=== PATIENT | female | born 1955 | race Caucasian/White ===

== ENCOUNTER 2025-10-17 08:57 | Outpatient (AMB) | payer OTHER, SELFPAY ==
--- OUTSIDE RECORDS SUMMARY | 2024-04-22 06:27 | XMS_ITS ---
Author Organization [facility] Address [address] [place] [id number] Care Team Providers Care Health/Safety Job Titles Name Role Phone NO, PCP Primary Care Provider Erfain Christie Unavailable [phone] Sugey Arriaga Unavailable [phone] REASON FOR VISIT returning call (2nd attempt) Encounters Encounter Location Date Provider Diagnosis [facility] [address] [address] 04/22/2024 Sugey Arriaga Plan Of Treatment No Information Progress Notes * Paula WALKERDOB: 4 (70 yo F)Acc No.[id number]:04/22/2024 Patient: Betsy MACE Paula :1955 A ge:68 Y S ex:Female Address:[address] [place] [address], [address] * * Date:
--- OUTSIDE RECORDS SUMMARY | 2025-08-06 16:00 | XMS_ITS ---
Author Organization [facility] Address [address] [place] [address] Care Team Providers Care Corduroy Cutter Operator Name Role Phone NO, PCP Primary Care Provider [phone] Efrain Christie Unavailable [phone] Migration, Provider Unavailable Unavailable Allergies Allergen (clinical drug ingredient) Drug/Non Drug Allergy documented on EMR Reaction Allergy Type Onset Date Status Levaquin rash Drug Allergy Active Penicillin rash Drug Allergy Active REASON FOR VISIT [facility] Encounter Medications Medication SIG (Take, Route, Frequency, Duration) Notes Start Date End Date Status Amitriptyline HCl 25 MG 1 tab(s) orally once a day (at bedtime) Active SUMAtriptan Succinate 100 MG 1 tab(s) orally once prn Active tiZANidine HCl ?DOSAGE *Please review a nd pick correct strength-formulati on from [facility] options. If intended option is not shown, discontinue and re-order from Quick Search* Active NexIUM 40 MG 1 cap(s) orally once a day Active Naproxen 375 MG 1 tab(s) orally 2 times a day Active Fluticasone Propionate 50 MCG/ACT 1 spray(s) intranasally bid Active Propranolol HCl 40 MG 1 tab(s) orally 2 times a day Active clonazePAM 0.5 MG 1 tab(s) orally qd Active rOPINIRole HCl 4 MG 1 tab(s) orally bid Active Topiramate 100 MG 1 tab(s) orally 2 times a day Active Encounters Encounter Location Date Provider Diagnosis [address] [address] 08/06/2025 Provider Migration Plan Of Treatment No Information Progress Notes * Jazzmine WALKERpeterDOB: 4 (70 yo F)Acc No.[id number]:08/06/2025 Patient: Paula BANKS Provider: :1955 A ge:69 Y S ex:Female Date:08/06/2025 Address:[address] [place] [address] Pcp:PCP NO Subjective: * Chief Complaints: * 1 . [facility] Conversion Encounter. * Medical History: * Medications: T aking Amitriptyline HCl 25 MG Tablet 1 tab(s) orally once a day (at bedtime) , Taking Propranolol HCl 40 MG Tablet 1 tab(s) orally 2 times a day , Taking clonazePAM 0.5 MG Tablet 1 tab(s) orally qd , Taking Fluticasone Propionate 50 MCG/ACT Suspension 1 spray(s) intranasally bid , Taking rOPINIRole HCl 4 MG Tablet 1 tab(s) orally bid , Taking Topiramate 100 MG Tablet 1 tab(s) orally 2 times a day , Taking NexIUM 40 MG Capsule Delayed Release 1 cap(s) orally once a day , Taking Naproxen 375 MG Tablet 1 tab(s) orally 2 times a day , Taking SUMAtriptan Succinate 100 MG Tablet 1 tab(s) orally once prn , Taking tiZANidine HCl ?DOSAGE , Notes to Pharmacist: *Please review and pick correct strength-formulation from [facility] options. If intended option is not shown, discontinue and re-order from Quick Search* * Allergies: P enicillin: rash - Allergy, Levaquin: rash - Allergy. Objective: * Vitals: Assessment: Plan: * Treatment: * Images: Billing Information: * Visit Code: * Procedure Codes: * Electronic signature of Prov ider Migration on 10/17/2025 at 09:39 AM EST Sign off status: Pending * Provider: Date: 0 08/06/2025 Generated for Augusta grant/Lourdes/Suzan on: 12/17/2024 09:39 AM EST
--- NOTE | 2025-10-17 08:59 | MHC.OFFVIS ---
Vital Signs 10/17/25 09:09 Height 5 ft 5 in Weight 152 lb BMI 25.3 BP 102/62 Blood Pressure Location Lt radial Position Sitting Intake Visit Reasons: FOLLOW UP, MIGRANES/MEDICATIONS Manager Parking Required: No Allergies levofloxacin (From Levaquin) Allergy (Unknown, Verified 10/17/25 09:10) Unknown Penicillins Allergy (Unknown, Verified 10/17/25 09:10) Unknown Medication List - Last Reconciled 10/17/25 by Alecia Hernandes CNP duloxetine 30 mg PO DAILY 30 days pramipexole 1 mg PO QPM 90 days pregabalin 75 mg PO ONCE topiramate 100 mg (2 x 50 mg) PO BEDTIME 30 days HPI Comments Details: Paula is a 70-year-old female patient with a past medical history of back pain, gastric bypass, liver cancer, and cardiac valve abnormalities here today for a follow-up visit. She has been following in the clinic for history of migraine and peripheral neuropathy. She was last seen in February of [address] David at which time she was on topiramate 100 mg at bedtime and amitriptyline for prevention and was taking sumatriptan and butalbital for abortive therapy. She was taking lidocaine patches, pramipexole, and pregabalin for her lower extremity discomfort. She tells me today that she reports that her lower extremities are swelling and she recently received an order for compression stockings that are knee high. She has seen some improvement in this. She continues to have significant discomfort her lower extremities especially to the right foot described as a squeezing sensation during the day. Sometimes her pain radiates from her right hip down. She has been taking Lyrica 75 mg and pramipexole 1 mg at bedtime for her pain which is helpful at night but still has significant difficulty during the day. She has tried Lyrica twice daily in the past however it made her very somnolent during the day and she stopped it taking it only now at nighttime. She is seeing podiatry regularly for her feet though Mr. Recent appointment and has another 1 coming up in 10 weeks. Her balance can be poor though she has not had any recent falls. She uses a cane and walker depending on the distance she is going. In terms of migraine, she still has migraine-type headaches including visual auras before onset of headache approximately 3 days per week. She has however been able to minimize her pain with immediate rest and pressure points to her head. She has not been taking her butalbital or sumatriptan as she has found that her non pharmaceutical measures has been allowing her to be pain-free within an hour so after onset. Headaches however can be frontal into the retro-orbital area typically unilateral when she does get them. She also has light and sound sensitivity and some mild nausea. She has been taking topiramate 100 mg at bedtime. [facility] Medical History (Updated 10/17/25 @ 09:50 by Alecia Hernandes CNP) Peripheral neuropathy Low back pain RLS (restless legs syndrome) Migraine Review of Systems Const All systems reviewed & are unremarkable except as noted in HPI and below Physical Exam Vital Signs: Last Vital Signs BP 102/62 10/17/25 09:09 BMI result Body Mass Index 25.3 Const General: cooperative, healthy appearing, comfortable and no acute distress Nutritional Appearance: well nourished Orientation/consciousness: patient oriented x3 Limitations: no limitations HEENT Head: Yes normal to inspection and Yes normocephalic Eyes General: appearance normal, both eyes and all related structures Visual Tubbs: normal visual tubbs by confrontation Alignment and Position: alignment normal Periorbital: periorbital findings normal Eyelids: Yes eyelids normal Conjunctivae: conjunctivae normal Sclerae: sclerae normal Direct Ophthalmoscopy: normal light reflex, no papilledema and fundi normal bilaterally Neck Neck: Yes normal visual inspection and Yes full ROM General: Yes no CVA tenderness Back/Spine/Pelvis Back: no CVA tenderness Cervical Spine: normal cervical lordosis Thoracic/Lumbar Spine: thoracic and lumbar spine normal to inspection Neuro General: patient oriented x3 and tone normal Cranial nerves: Yes CN's II-XII intact bilaterally Cognition (Neuro): normal cognition Gait exam (Neuro): Normal gait present Motor exam (neuro): no tremor noted and Abnormal motor strength present (4/5 throughout ) Sensory Exam: double simultaneous stimulation for sensation normal Deep tendon reflexes (DTR's): Right triceps reflex intensity grade: 1+, Left triceps reflex intensity grade: 1+, Rt Biceps (C5, C6): 1+, Left biceps reflex intensity grade: 1+, Right brachioradialis reflex intensity grade: 1+, Left brachioradialis reflex intensity grade: 1+, Right patellar reflex intensity grade: 1+, Left patellar reflex intensity grade: 1+, Right ankle reflex intensity grade: 1+ and Left ankle reflex intensity grade: 1+ Romberg Test: Negative Pupils: Normal pupillary reactivity/response: bilateral Psych Appearance: grossly normal Mental Status: mental status grossly normal Speech and movement: Normal speech and movement present and Clear speech present Affect: normal affect Attitude: cooperative Thought process: Normal thought process present Thought content: Normal thought content present Insight: Good insight present (Psych) Judgement: Good judgement present (Psych) Assessment & Plan Assessment & Plan (1) Migraine with aura and without status migrainosus, not intractable: Code(s): G43.109 - Migraine with aura, not intractable, without status migrainosus Category: Medical (2) Lower extremity pain: Code(s): M79.606 - Pain in leg, unspecified Category: Medical Plan Paula is a 70-year-old female patient with a past medical history of back pain, gastric bypass, liver cancer, and cardiac valve abnormalities here today for a follow-up visit. She has been following in the clinic for history of migraine and peripheral neuropathy. She continues to have difficulty managing pain during the day as she has not been able to tolerate sedating medications. She is taking her Lyrica and pramipexole at nighttime which does help. During the day however she is very uncomfortable. She was taken off of amitriptyline for unclear reasons but perhaps due to her age. I will start her on duloxetine 30 mg daily for her pain and at time of next visit if she is tolerating well, I will increase the dose to 60 mg if indicated. I would also like to start to consider tapering her off of her topiramate as this can contribute to cognitive slowing in older adults. -Start duloxetine 30mg daily -Continue lyrica 75mg nightly -Continue priamprexole 1mg night;y -Contineu topiramate 100mg nightly (would like to consider tapering down on this in the future) -Follow-up in 6 weeks Medications: New duloxetine 30 mg PO DAILY 30 caps 5RF 30 days Alecia Hernandes CNP Changed From pregabalin 75 mg PO BID 30 days 60 caps 0RF To pregabalin 75 mg PO ONCE Eufemia Rondinelli, DYE PADDER OPERATOR Coding Level of Care Code Est Pt Level 4 (96618) Diagnoses Migraine with aura and without status migrainosus, not intractable G43.109 Lower extremity pain M79.606
[2025-10-17 09:09] VITALS: BP 102/62; BMI 25.3
--- OUTSIDE RECORDS SUMMARY | 2025-10-17 09:39 | XMS_ITS | Patient Health Record ---
Author Organization [facility] Address [address] [place] [address] Care Team Providers Care Field Checker Name Role Phone NO, PCP Primary Care Provider Efrain Christie Unavailable [phone] Migration, Provider Unavailable Unavailable Allergies Allergen (clinical drug ingredient) Drug/Non Drug Allergy documented on EMR Reaction Allergy Type Onset Date Status Levaquin rash Drug Allergy Active Penicillin rash Drug Allergy Active Reason For Referral No Information Medications Medication SIG (Take, Route, Frequency, Duration) Notes Start Date End Date Status Fluticasone Propionate 50 MCG/ACT 1 spray(s) intranasally bid Active Propranolol HCl 40 MG 1 tab(s) orally 2 times a day Active clonazePAM 0.5 MG 1 tab(s) orally qd Active Amitriptyline HCl 25 MG 1 tab(s) orally once a day (at bedtime) Active SUMAtriptan Succinate 100 MG 1 tab(s) orally once prn Active tiZANidine HCl ?DOSAGE *Please review a nd pick correct strength-formulati on from [facility] options. If intended option is not shown, discontinue and re-order from Quick Search* Active NexIUM 40 MG 1 cap(s) orally once a day Active Naproxen 375 MG 1 tab(s) orally 2 times a day Active rOPINIRole HCl 4 MG 1 tab(s) orally bid Active Topiramate 100 MG 1 tab(s) orally 2 times a day Active Social History Tobacco Use: Social History Observation Description Date Details (start date - stop date) Never Smoker NA - NA Tobacco Use Assessment MU Question Answer Notes What is your current smoking status? nonsmoker Problems Problem Type SNOMED Code ICD Code Onset Dates Problem Status W/U Status Risk Notes Problem Homelessness (92134313) Homelessness (Z59.0) Active confirmed Encounters Encounter Location Date Provider Diagnosis [facility] [address] [place] [address] 08/06/2025 Provider Migration Plan Of Treatment No Information Insurance Providers Payer Name Payer Address Payer Phone Subscriber Number Group Number Insured Name Patient Relationship to Insured Coverage Start Date Coverage End Date [facility] [address] [place] [phone] [id number] Paula Walker Self - patient is the insured Medical (General) History Medical History History ICD Code Hypotensive Hypoglycemia Acid Reflux RLS Migraines Arthritis Back pain Surgical History Surgery Date(Month/Year) Back surgey Gastric Bypass Carpal tunnel surgery Extra abd skin removed Hospitalization History Reason Date(Month/Year) Just following surgeries [place] [facility] [place]
--- OUTSIDE RECORDS SUMMARY | 2025-10-17 09:39 | XMS_ITS | Continuity of Care Document ---
Author Organization [facility] [address] [place] [address] Phone [phone] Care Team Providers Care Spearer Name Role Phone Shavonne López M.D. Care Team Information Kapok Machine Operator + [phone] Problems Active Problems Provider Date Morbid obesity Ileana Bonilla M.D. Ons et: 01/23/2023 Migraine Ileana Bonilla M.D. Ons et: 01/23/2023 History of cholangiocarcinoma Ileana rojas M.D. Onset: 01/23/2023 Hypoglycemia Ileana Bonilla M.D. Ons et: 01/23/2023 Pheochromocytoma Ileana Bonilla M.D. On set: 01/23/2023 Gastroesophageal reflux disease Ileana Wilkinson M.D. Onset: 01/23/2023 Dyslipidemia Ileana Bonilla M.D. Ons et: 01/23/2023 Hemorrhoids Ileana Bonilla M.D. Ons et: 01/23/2023 Tubular adenoma Ileana Bonilla M.D. Ons et: 01/23/2023 Spinal stenosis of lumbar region Ileana Gan M.D. Onset: 01/23/2023 Aortic valve stenosis Jessica Knox Onset: 01/23/2023 Paroxysmal atrial fibrillation Ileana echevarria M.D. Onset: 01/23/2023 Chronic constipation Onesimo Knox Onset: 01/23/2023 Restless legs Ileana Bonilla M.D. Ons et: 01/23/2023 Mantoux: positive Ileana Bonilla M.D. O nset: 01/23/2023 Peripheral venous insufficiency Ileana Wilkinson M.D. Onset: 01/23/2023 Post-adrenalectomy adrenal insufficiency Ileana Bonilla M.D. Onset: 01/23/2023 Social History Type Date Description Comments Sex Female Sex Unknown Lives With Alone Work Status Retired ETOH Use Rarely consumes alcohol Tobacco Use Start: Unknown Patient has never smoked Allergies and adverse reactions Active Allergies Criticality Reaction Severity Comments Date Penicillin Unable to assess criticality 01/23/2023 Levaquin Unable to assess criticality 01/23/2023 Cephalexin Unable to assess criticality 09/19/2023 Azithromycin Unable to assess criticality 09/19/2023 Medications Active Medications SIG Qnty Indications Order ing Provider Date Yvyctiriwjmzqbnckpo32fp Tablets 1 by mouth every day 90tabs Ileana Bonilla M.D. 09/19/2023 Vitamin B ComplexTablets 1 every day Ileana Bonilla M.D. 01/23/2023 Viactiv Calcium Plus D650-12.5-40mg-mcg Chewtabs 1 by mouth twice a day Ileana Bonilla M.D. 01/23/2023 Pramipexole Fxoulbattgrfcyp2bk Tablets Take 1 Tablet By Mouth Every Day In The Evening Justin David MD Jfuzibqmua96gt Capsules Take 1 Capsule By Mouth Once A Day Justin David MD Sumatriptan Nprbepyjw259ue Tablets As needed for migraine Shavonne López M.D. Tizanidine HCL4mg Tablets Take 1 every night Unknown Uqznlqk9qc Tablets Take 1 tablet twice daily Unknown Docusate Qmlyuz382mh Capsules Take 1 capsule twice daily Shavonne López M.D. Freestyle LancetsMisc Unknown Zcpe-Bmizj684-971-20mg/ 5ML Suspension prn Unknown Senna-Tabs8.6mg Tablets Take 1 every night Unknown Zkikdhmwlg26ab Tablets Take 1 every night Justin David MD Ropinirole HCL4mg Tablets Take 2 tablets every evening Justin David MD Ondansetron HCL4mg Tablets prn Shavonne López M.D. Freestyle Lite TestStrips Use To Test Blood Sugar Once A Day Shavonne López M.D. Diclofenac Sodium1% Gel apply as needed Shavonne López M.D. Acetaminophen Extra Dsaebgxj362go Tablets Take 1 every morning, 2 in the evening Shavonne López M.D. Wylinpnswo56dh Capsules DR Take 1 daily Shavonne López M.D. Vitamin V911hpj (2000 Ut) Capsules Take 1 daily Shavonne López M.D. Amitriptyline LJY57lp Tablets Take 1 tablet in the evening Shavonne López M.D. Cetirizine VHG80im Tablets Take 1 tablet in the morning Shavonne López M.D. Vital Signs Date Vital Result Comment 04/07/2024 8:55am BP Systolic 94 mmHg BP Diastolic 64 mmHg Procedures Date Code Description Status 01/11/2025 NSHOWOFF No Show Office Visit Complet ed 03/25/2024 NSHOWOFF No Show Office Visit Complet ed Medical Devices Description No Information Available Encounters Type Date Location Provider Dx Diagnosis Office Visit 04/07/2024 8:15a Main Office Ileana Bonilla M.D. D35.02 Benign neoplasm of left adrenal gland Z98.[address] at I95.1 Orthostatic hypotens ion E16.2 Hypoglycemia, unspec ified Assessments Date Code Description Provider 04/07/2024 D35.02 Benign neoplasm of left adre nal gland Ileana Bonilla M.D. 04/07/2024 Z98.84 Bariatric surgery status Krysta Bonilla M.D. 04/07/2024 I95.1 Orthostatic hypotension Mica Bonilla M.D. 04/07/2024 E16.2 Hypoglycemia, unspecified Ki eduar Bonilla M.D. Plan of Treatment No Information Available Functional Status Description No Information Available Mental Status Description No Information Available Referrals Description No Information Available
--- OUTSIDE RECORDS SUMMARY | 2025-10-17 09:39 | XMS_ITS | Clinical Summary ---
Author Organization [facility] Address [address] [place] [address] Care Team Providers Care Deployment Technician Name Role Phone Yuliya López MD Primary Care Provider Allergies Active Allergy Reactions Criticality Noted Date Comments Levofloxacin 12/08/2020 Penicillins 12/08/2020 Medications Medication Sig Dispensed Refills Start Date End Date Status omeprazole (PriLOSEC) 20 MG capsule Take 1 capsule (20 mg total) by mouth daily. 0 Active bisacodyl (DULCOLAX) 5 MG EC tablet Take 1 tablet (5 mg total) by mouth daily as needed for constipation. 0 Active tiZANidine (ZANAFLEX) 4 MG tablet Take 1 tablet (4 mg total) by mouth every 6 (six) hours as needed. 0 Active cetirizine (ZyrTEC) 10 MG tablet Take 1 tablet (10 mg total) by mouth daily. 0 Active azelastine (ASTELIN) 0.1 % nasal spray spray or apply 1 spray inside Nose 2 (two) times a day. Use in each nostril as directed 0 Active SUMAtriptan (IMITREX) 100 MG tablet Take 1 tablet (100 mg total) by mouth every 2 (two) hours as needed for migraine. 0 Active clonazePAM (KlonoPIN) 0.5 MG tablet Take 1 mg by mouth every night at bedtime as needed for anxiety. 0 Active celecoxib (CeleBREX) 200 MG capsule Take 1 capsule (200 mg total) by mouth daily. 0 Active rOPINIRole (REQUIP) 4 MG tablet Take 4 mg by mouth every night at bedtime. 0 Active topiramate (TOPAMAX) 100 MG tablet Take 1 tablet (100 mg total) by mouth 2 (two) times a day. 0 Active amitriptyline (ELAVIL) tablet 50 mg Take 1 tablet (50 mg total) by mouth every night at bedtime. 0 Active Biotin 5 MG CAPS Take by mouth. 0 Acti ve Multiple Vitamin (MULTIVITAMIN PO) Take by mouth. 0 Act stephanie ondansetron (ZOFRAN) 4 MG tablet Take 1 tablet (4 mg total) by mouth 2 (two) times a day as needed. for nausea 20 tablet 1 04/20/2021 Active Apixaban (ELIQUIS PO) Take by mouth. 0 Active DULoxetine (CYMBALTA) DR capsule 60 mg Take 1 capsule (60 mg total) by mouth daily. 0 Active hydroCHLOROthiazide (HYDRODIURIL) tablet 25 mg Take 1 tablet (25 mg total) by mouth daily. 90 tablet 1 06/11/2024 Active Active Problems Problem Noted Date Diagnosed Date Diabetes mellitus type 2 with neurological manif estations 05/07/2021 Atrial fibrillation 02/19/2021 Overview: 01/14 post op Cholangiocarcinoma 02/17/2021 Liver mass, right lobe 12/12/2020 Pheochromocytoma 07/04/2020 Overview: Left adrenalectomy 07/13 Aortic stenosis 05/13/2020 Overview: 05/13 mild to moderate 02/11 severe History of gastric bypass 05/29/2018 Hypercholesteremia 08/03/2012 Restless legs syndrome (RLS) 03/16/2009 Venous insufficiency 03/16/2009 Esophageal reflux 11/09/2005 Lumbar spinal stenosis 11/09/2005 Social History Tobacco Use Types Packs/Day Years Used Date Smoking Tobacco: Never Smokeless Tobacco: Never Alcohol Use Standard Drinks/Week Comments No 0 (1 standard drink = 0.6 oz pur e alcohol) Sex and Gender Information Value Date Recorded Sex Assigned at Not on file Gender Identity Not on file Sexual Orientation Not on file Job Start Date Occupation Industry Not on file Not on file Not on file Last Filed Vital Signs Vital Sign Reading Time Taken Comments Blood Pressure 119/49 02/18/2024 10:35 AM EDT Pulse 69 02/18/2024 10:35 AM EDT Temperature 36.8 C (98.2 F) 02/18/2024 10:35 AM EDT Respiratory Rate 18 05/07/2021 11:46 AM EDT Oxygen Saturation 100% 02/18/2024 10:35 AM EDT Inhaled Oxygen Concentration - - Weight 93.9 kg (207 lb) 02/18/2024 10:35 AM EDT Height 165.1 cm (5' 5 ) 07/15/2023 10:45 AM EDT Body Mass Index 34.45 07/15/2023 10:45 AM EDT Plan of Treatment Health Maintenance Due Date Last Done Comments Hepatitis C Screening 1955 Depression Screening 1966 BMI Counseling 1972 Preventative Health Evaluation 1972 Colon Cancer Screening (Colonoscopy) 1999 Breast Cancer Screening (Mammogram) 2004 Fall Risk Assessment 2019 Osteoporosis Screening (DEXA Scan) 2019 Shingrix-Zoster Vaccine (2 of 2) 11/20/2022 09/25/2022 COVID-19 Vaccine ( season) 2025 10/24/2023, 02/16/2022, 02/26/2021, Additional history exists Influenza Vaccine (#1) 2025 , 11/01/2022, 11/01/2022, Additional history exists RSV Adult > 60+ Yrs or (1 - 1-dose 75+ series) 2029 DTap / Tdap / Td (3 - Td or Tdap) 08/18/2031 08/18/2021, 06/01/2011, 11/24/2000, Additional history exists Pneumococcal Vaccine Completed 02/16/2022, 10/06/2019, 01/03/2015 Hepatitis B Vaccines Aged Out No long er eligible based on patient's age to complete this topic RSV Ped < 20 months Aged Out No longe r eligible based on patient's age to complete this topic Care Teams Deployment Technician Relationship Specialty Start Date End Date Yuliya López MD PCP - General Internal Medicine 04/13/21
== END 2025-10-17 09:35 | disposition home or self-care (01) ==
LOC: HO.HSM 08:58
PROVIDERS: PCP Internal Medicine; Visit Provider Nurse Practitioner
DX: G43.109 Migraine with aura, not intractable, without status migrainosus (principal); M79.606 Pain in leg, unspecified
CPT/HCPCS: 99214

== ENCOUNTER → 2025-10-17 08:57 | Outpatient (BNVA) | payer OTHER, SELFPAY | PROVIDERS: PCP Internal Medicine; Visit Provider Nurse Practitioner | DX: G43.109 Migraine with aura, not intractable, without status migrainosus (principal); M79.604 Pain in right leg | CPT/HCPCS: 99212 ==